=== PATIENT | female | born 1940 | race Caucasian/White ===

== ENCOUNTER 2016-07-04 01:51 | Observation (INO) ==
[2016-07-04] MEDS ORDERED: 0.9 % Sodium Chloride 1,000 ML IVC ONE (04:10)
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
[2016-07-04 04:53] LABS: Basophils % 0.1 %; Hematocrit 41.8 % (35.3-44.9); Immature Granulocytes % 0.6 % (0-4); Lymphocytes # 0.5 K/mcL (0.6-4.6); Lymphocytes % 5.9 %; Mean Corpuscular HGB Conc 33.5 g/dL (31.6-35.5); Mean Corpuscular Hemoglobin 30.8 pg (28.0-33.3); Mean Corpuscular Volume 92.1 fL (83.0-100.0); Mean Platelet Volume 10.1 fL (9.4-12.4); Monocytes # 0.8 K/mcL (0.0-1.3); Monocytes % 9.6 %; Neutrophils # 6.8 K/mcL (1.6-8.9); Platelet Count 162 K/mcL (140-400); Red Blood Count 4.54 M/mcL (3.82-4.97); Red Cell Distribution Width 13.6 % (11.5-14.5); Segmented Neutrophils % 83.8 %
[2016-07-04 05:10] LABS: Calcium 8.8 mg/dL (8.6-10.8); Magnesium 1.9 mg/dL (1.6-2.6); Potassium 3.5 mEq/L (3.5-4.5)
[2016-07-04] MEDS: 0.9 % Sodium Chloride 1,000 ML IVC SCH ×2 (05:39→19:25)
[2016-07-04] MEDS: *HR* Heparin 5,000 UNIT/ML VIAL SQ SCH ×3 (06:00→23:11)
[2016-07-04] MEDS: Famotidine 20 MG TABLET PO SCH (08:49)
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
[2016-07-05] MEDS: 0.9 % Sodium Chloride 1,000 ML IVC SCH (04:43)
[2016-07-05] MEDS: *HR* Heparin 5,000 UNIT/ML VIAL SQ SCH ×3 (06:36→23:08)
[2016-07-05] MEDS: Famotidine 20 MG TABLET PO SCH (07:35)
[2016-07-05 08:06] LABS: Basophils % 0.4 %; Eosinophils # 0.1 K/mcL (0.0-0.6); Hematocrit 42.9 % (35.3-44.9); Hemoglobin 13.6 g/dL (11.5-15.4); Immature Granulocytes % 0.4 % (0-4); Lymphocytes % 22.4 %; Mean Corpuscular HGB Conc 31.7 g/dL (31.6-35.5); Mean Corpuscular Hemoglobin 29.8 pg (28.0-33.3); Mean Corpuscular Volume 94.1 fL (83.0-100.0); Mean Platelet Volume 10.7 fL (9.4-12.4); Monocytes # 0.7 K/mcL (0.0-1.3); Monocytes % 15.2 %; Neutrophils # 2.7 K/mcL (1.6-8.9); Platelet Count 161 K/mcL (140-400); Red Blood Count 4.56 M/mcL (3.82-4.97); Red Cell Distribution Width 13.9 % (11.5-14.5); Segmented Neutrophils % 59.6 %
[2016-07-05 08:10] LABS: BUN/Creatinine Ratio 22 (6-26); Blood Urea Nitrogen 20 mg/dL (7-20); Carbon Dioxide 19 mEq/L (19-29); Chloride 112 mEq/L (98-109); Potassium 3.8 mEq/L (3.5-4.5); Sodium 142 mEq/L (136-145); eGFR For African Americans > 60 (> 60)
[2016-07-05 08:11] LABS: Alanine Aminotransferase 43 Units/L (0-55); Albumin/Globulin Ratio 0.9 (1.1-2.2); Alkaline Phosphatase 44 Units/L (38-126); Aspartate Amino Transferase 78 Units/L (5-34); Bilirubin,Total 0.2 mg/dL (0.2-1.2); Calcium 8.4 mg/dL (8.6-10.8); Creatine Kinase 1840 Units/L (29-168); Globulin 3.4 g/dL (2.4-3.5); Glucose 98 mg/dL (70-99); Osmolality,Calculated 297 (280-300); Total Protein 6.4 g/dL (6.0-8.3); eGFR For Non-African Americans 59 (> 60)
[2016-07-05] MEDS ORDERED: Acetaminophen 325 MG TABLET PO PRN (08:20)
[2016-07-05] MEDS: *HR* OxyCODONE/APAP 5/325 TABLET PO PRN ×4 (08:52→18:33)
[2016-07-05] MEDS: amLODIPine 5 MG TABLET PO SCH (08:52)
[2016-07-05] MEDS: *HR* HYDROmorphone (PF) 1 MG/ML SYRINGE IVP PRN ×2 (10:17→22:28)
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
[2016-07-06] MEDS: *HR* OxyCODONE/APAP 5/325 TABLET PO PRN ×2 (02:56→13:18)
[2016-07-06 04:13] LABS: Basophils % 0.2 %; Eosinophils # 0.2 K/mcL (0.0-0.6); Hemoglobin 13.7 g/dL (11.5-15.4); Immature Granulocytes % 0.4 % (0-4); Lymphocytes # 0.8 K/mcL (0.6-4.6); Lymphocytes % 15.9 %; Mean Corpuscular HGB Conc 32.6 g/dL (31.6-35.5); Mean Corpuscular Hemoglobin 30.6 pg (28.0-33.3); Mean Platelet Volume 11.1 fL (9.4-12.4); Monocytes # 0.5 K/mcL (0.0-1.3); Monocytes % 9.6 %; Neutrophils # 3.5 K/mcL (1.6-8.9); Platelet Count 133 K/mcL (140-400); Red Blood Count 4.47 M/mcL (3.82-4.97); Segmented Neutrophils % 70.9 %
[2016-07-06 04:31] LABS: Alanine Aminotransferase 39 Units/L (0-55); Albumin/Globulin Ratio 0.9 (1.1-2.2); Alkaline Phosphatase 41 Units/L (38-126); Aspartate Amino Transferase 61 Units/L (5-34); BUN/Creatinine Ratio 21 (6-26); Bilirubin,Total 0.2 mg/dL (0.2-1.2); Blood Urea Nitrogen 20 mg/dL (7-20); Calcium 8.9 mg/dL (8.6-10.8); Carbon Dioxide 22 mEq/L (19-29); Chloride 108 mEq/L (98-109); Globulin 3.4 g/dL (2.4-3.5); Glucose 99 mg/dL (70-99); Osmolality,Calculated 295 (280-300); Potassium 3.6 mEq/L (3.5-4.5); Sodium 141 mEq/L (136-145); Total Protein 6.4 g/dL (6.0-8.3); eGFR For African Americans > 60 (> 60); eGFR For Non-African Americans 56 (> 60)
[2016-07-06] MEDS: *HR* Heparin 5,000 UNIT/ML VIAL SQ SCH ×3 (06:05→22:26)
[2016-07-06] MEDS: Famotidine 20 MG TABLET PO SCH (09:49)
[2016-07-06] MEDS: amLODIPine 5 MG TABLET PO SCH (09:49)
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
[2016-07-06] MEDS: *HR* HYDROmorphone (PF) 1 MG/ML SYRINGE IVP PRN (14:57)
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
[2016-07-06 20:28] LABS: CK-BB (CK isoenzymes) 0 % (0-0); CK-MB (CK isoenzymes) 0 % (0-4); CK-MM (CK-isoenzymes) 100 % (96-100)
[2016-07-07] MEDS: *HR* OxyCODONE/APAP 5/325 TABLET PO PRN ×2 (03:13→20:29)
[2016-07-07] MEDS: *HR* Heparin 5,000 UNIT/ML VIAL SQ SCH ×2 (06:09→14:54)
[2016-07-07] MEDS: Famotidine 20 MG TABLET PO SCH (07:54)
[2016-07-07] MEDS: amLODIPine 5 MG TABLET PO SCH (07:54)
[2016-07-07 10:02] LABS: CK Total (Ck Isoenzymes) 920 U/L (20-180)
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
[2016-07-07] MEDS: Cefdinir 300 MG CAPSULE PO SCH ×2 (11:26→20:30)
[2016-07-07] MEDS: *HR* HYDROcodone/Acet 5/325 mg TABLET PO PRN (15:51)
[2016-07-08] MEDS: *HR* Heparin 5,000 UNIT/ML VIAL SQ SCH ×4 (00:03→22:01)
[2016-07-08 04:59] LABS: BUN/Creatinine Ratio 31 (6-26); Blood Urea Nitrogen 22 mg/dL (7-20); Calcium 9.1 mg/dL (8.6-10.8); Carbon Dioxide 24 mEq/L (19-29); Chloride 104 mEq/L (98-109); Glucose 95 mg/dL (70-99); Osmolality,Calculated 295 (280-300); Potassium 3.7 mEq/L (3.5-4.5); Sodium 141 mEq/L (136-145); eGFR For African Americans > 60 (> 60); eGFR For Non-African Americans > 60 (> 60)
[2016-07-08] MEDS: *HR* OxyCODONE/APAP 5/325 TABLET PO PRN ×2 (05:18→22:01)
[2016-07-08] MEDS: amLODIPine 5 MG TABLET PO SCH (07:59)
[2016-07-08] MEDS: Famotidine 20 MG TABLET PO SCH (07:59)
[2016-07-08] MEDS: Cefdinir 300 MG CAPSULE PO SCH ×2 (07:59→20:19)
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
[2016-07-08 17:14] LABS: CK-BB (CK isoenzymes) 0 % (0-0); CK-MB (CK isoenzymes) 1 % (0-4); CK-MM (CK-isoenzymes) 99 % (96-100)
[2016-07-09] MEDS: *HR* Heparin 5,000 UNIT/ML VIAL SQ SCH (06:22)
[2016-07-09 07:49] VITALS: BP 127/81
[2016-07-09] MEDS: Famotidine 20 MG TABLET PO SCH (08:00)
[2016-07-09] MEDS: *HR* HYDROcodone/Acet 5/325 mg TABLET PO PRN (08:00)
[2016-07-09] MEDS: Cefdinir 300 MG CAPSULE PO SCH (08:00)
[2016-07-09] MEDS: amLODIPine 5 MG TABLET PO SCH (08:00)
[2016-07-09 11:14] LABS: CK Total (Ck Isoenzymes) 1549 U/L (20-180)
== END 2016-07-09 09:55 ==
LOC: 3BNU → SUATTDRO 02:53
PROVIDERS: ADMIT Internal Medicine; ATTEND Nurse Practitioner Family